=== PATIENT | female | born 1945 | race American Indian/Alaskan Native ===

== ENCOUNTER 2016-12-25 16:04 | Emergency (ER) | payer OTHER ==
[2016-12-25 16:20] VITALS: BP 167/84; PULSE 75; RESP 20; TEMP 98.2; O2SAT 92
--- NOTE | 2016-12-25 16:38 | UCPHY ---
H & P Patient Type: New Chief Complaint Nursing Narrative: PT. states intermittent for 2weeks,usually upon awakening,cough-in afternoon to nanci, productive-green with exertional dyspnea,fever 1.5wks ago?99.0 Time Seen by Provider: 12/25/16 16:28 HPI/ROS: CHIEF COMPLAINT: Sinus congestion, headache, cough HISTORY OF PRESENT ILLNESS: The patient is a 71-year-old female who comes to the Urgent Care complaining of a sinus infection. She states that she has had sinus congestion for the last 5 days. When she lays flat she has a headache and a dry cough. She denies sore throat. She had a temperature of 99 degrees 2 days ago but has not had any fever since. She denies chest pain or shortness of breath. She does not have any history of cardiac or pulmonary disease. REVIEW OF SYSTEMS: Constitutional: denies: chills, fever, recent illness, recent injury EENTM: See HPI Respiratory: See HPI Cardiac: denies: chest pain, irregular heart rate, lightheadedness, palpitations Gastrointestinal/Abdominal: denies: abdominal pain, diarrhea, nausea, vomiting, blood streaked stools Genitourinary: denies: dysuria, frequency, hematuria, pain Musculoskeletal: denies: joint pain, muscle pain Skin: denies: lesions, rash, jaundice, bruising Neurological: denies: headache, numbness, paresthesia, tingling, dizziness, weakness Hematologic/Lymphatic: denies: blood clots, easy bleeding, easy bruising Immunologic/allergic: denies: HIV/AIDS, transplant EXAM: GENERAL: Well-appearing, well-nourished and in no acute distress. HEAD: Atraumatic, normocephalic. EYES: Pupils equal round and reactive to light, extraocular movements intact, sclera anicteric, conjunctiva are normal. ENT: effusions behind both tympanic membranes, sinus tenderness, sinus discharge, no oral erythema or exudate. Mucous membranes moist NECK: Normal range of motion, supple without lymphadenopathy or JVD. LUNGS: Breath sounds clear to auscultation bilaterally and equal. No wheezes rales or rhonchi. HEART: Regular rate and rhythm without murmurs, rubs or gallops. ABDOMEN: Soft, nontender, normoactive bowel sounds. No guarding, no rebound. No masses appreciated. BACK: No CVA tenderness, no spinal tenderness, step-offs or deformities EXTREMITIES: Normal range of motion, no pitting or edema. No clubbing or cyanosis. NEUROLOGICAL: Cranial nerves II through XII grossly intact. Normal speech, normal gait. 5/5 strength, normal movement in all extremities, normal sensation PSYCH: Normal mood, normal affect. SKIN: Warm, dry, normal turgor, no visible rashes or lesions. Source: Patient Exam Limitations: No limitations - Medical/Surgical History Hx Asthma: No Hx Chronic Respiratory Disease: No Hx Diabetes: No Hx Cardiac Disease: No Hx Renal Disease: No Hx Cirrhosis: No Hx Alcoholism: No Hx HIV/AIDS: No Hx Splenectomy or Spleen Trauma: No Other PMH: Med hx-thyroid,CA-Liver. Surg-Hyst with partial liver,lumpectomy, appy - Family History Significant Family History: No pertinent family hx - Social History Smoking Status: Former smoker Alcohol Use: Sober Drug Use: None Constitutional: Initial Vital Signs Temperature (C) 36.8 C 12/25/16 16:08 Heart Rate 75 12/25/16 16:08 Respiratory Rate 20 12/25/16 16:08 Blood Pressure 167/84 H 12/25/16 16:08 O2 Sat (%) 92 12/25/16 16:08 O2 Delivery Mode Room Air Allergies/Adverse Reactions: erythromycin base [Erythromycin Base] Allergy (Severe, Verified 12/25/16 16:09) Unknown fluoxetine HCl [From Prozac] Allergy (Severe, Verified 12/25/16 16:09) PARANOIA iodine [Iodine] Allergy (Severe, Verified 12/25/16 16:09) Anaphylaxis lithium [[place]] Allergy (Severe, Verified 12/25/16 16:09) Unknown fluticasone propionate [From Flonase] Allergy (Unknown, Verified 12/25/16 16:09) Latex, Natural Rubber Allergy (Unknown, Verified 12/25/16 16:09) triamcinolone acetonide [From Nasacort AQ] Allergy (Unknown, Verified 12/25/16 16:09) adhesive Allergy (Verified 12/25/16 16:09) Other-Enter Comments ssri's Allergy (Unknown, Uncoded 12/25/16 16:09) Home Medications: Medication Instructions Recorded AZITHROMYCIN [Z-PACK] 250 mg PO DAILY #6 tab 12/25/16 Levothyroxine 12/25/16 VITAMIN D 12/25/16 Medical Decision Making ED Course/Re-evaluation: Patient has symptoms consistent with sinusitis. I will start her on azithromycin. She is agreeable with this. She declines further workup or testing at this time. She is not allergic to azithromycin . Differential Diagnosis: Partial list of the Differential diagnosis considered include but were not limited to; sinus infection, pharyngitis, otitis media and although unlikely based on the history and physical exam, I also considered bronchitis, pneumonia , sepsis. I discussed these differential diagnoses and the plan with the patient as well as the usual and expected course. The patient understands that the diagnosis is provisional and that in medicine we are not always correct and that further workup is often warranted. Usual and customary warnings were given. All of the patient's questions were answered. The patient was instructed to return to the emergency department should the symptoms at all worsen or return, otherwise to followup with the physician as we discussed. Departure - Departure Disposition: Home, Routine, Self-Care Clinical Impression: Sinusitis Qualifiers: Sinusitis location: maxillary Chronicity: acute Recurrence: non-recurrent Qualified Code(s): J01.00 - Acute maxillary sinusitis, unspecified Condition: Fair Instructions: Sinusitis (ED) Referrals: Kajal Raines MD [Primary Care Provider] - As per Instructions Prescriptions: AZITHROMYCIN [Z-PACK] 250 mg PO DAILY #6 tab - PQRS PQRS Measurement: 134: Depression screening and followup, PRIME MD-PHQ2 (12 years and older) Over the last 2 weeks, how often have you been bothered by any of the following problems? 1. Feeling down, depressed, or hopeless? 2. Little interest or pleasure in doing things? Patient answered no to both 1 and 2 130: Documentation of medications. Reviewed all patient medications, doses, route and frequency. 226: Do you smoke? No. 47: 65 and older: Advanced care planning. Patient designates surrogate decision maker as spouse . Patient has advanced directive. 51: 18 years old and older with diagnosis of COPD, spirometry performance. Spirometry not performed; equipment not available. 52: 18 years old and older with COPD and symptoms of COPD or FEV1<60% predicted prescribed a B Agonist. Not applicable
== END 2016-12-25 17:07 | disposition home or self-care (01) ==
LOC: CED 16:04
DX: J01.00 Acute maxillary sinusitis, unspecified (principal); Z87.891 Personal history of nicotine dependence
CPT/HCPCS: G0463-PO

== ENCOUNTER → 2017-01-15 | Outpatient (CLI) | payer OTHER | LOC: CIMAGING 12:28 | PROVIDERS: ATTEND Family Medicine | DX: N63 Unspecified lump in breast (principal) | CPT/HCPCS: 76641; G0204 ==

== ENCOUNTER → 2017-02-02 | Outpatient (CLI) | payer OTHER ==
[~2017-02-02] MED LIST: BUPIVACAINE 0.5% 10 ML SDV ONE; LIDO/EPI 1% **Not for Epidural 20 ML MDV ONE; LIDOCAINE 1% 30 ML SDV ONE; NA BICARBONATE 50 MEQ/50 ML VIAL ONE; THROMBIN (BOVINE) 5,000 UNIT VIAL TP ONE
== END ==
LOC: FIMAGING 08:35
PROVIDERS: ATTEND Family Medicine
PROC: 0HBU3ZX Excision of Left Breast, Percutaneous Approach, Diagnostic (ICD-10-PCS; principal; 2017-02-02)
DX: C50.912 Malignant neoplasm of unspecified site of left female breast (principal)
CPT/HCPCS: G0206

== ENCOUNTER 2017-03-03 08:13 | Observation (INO) | payer OTHER ==
--- NOTE | 2017-03-02 16:03 | GHP ---
[f rep st] PREOP HISTORY AND PHYSICAL DATE OF ADMISSION: 03/03/2017 DATE OF SURGERY: 03/03/2017. CHIEF COMPLAINT: Left multifocal breast cancer. HISTORY OF PRESENT ILLNESS: The patient is a 72-year-old woman who has a history of breast cancer o n the right side. She underwent lumpectomy and radiation. She also had a hysterectomy due to stage IV ovarian cancer approximately 30 years ago. She reports that she had genetic testing that was po sitive, but she is unsure of what gene. She does not think that it was the BRCA gene. She developed nodules of the left breast. She had diagnostic mammogram and ultrasound on 01/15/2017 . She underwent ultrasound-guided biopsy on 02/02/2017. At the 10 o'clock position 8 cm from the n ipple, the pathology revealed infiltrating ductal carcinoma, grade 3 that was weakly ER positive, OR negative. At the left breast in the 4 o'clock position 4 cm from the nipple, was infiltrating duct al carcinoma, similar features. She presents at this time for mastectomy. PAST MEDICAL HISTORY: Bipolar disorder, history of breast cancer as above, cyclothymic disorder, GE RD, hypothyroidism, liver abscess, ovarian cancer, vitamin D deficiency, stress incontinence. PAST SURGICAL HISTORY: Appendectomy, cholecystectomy, hysterectomy, liver lobectomy, right lumpecto my. ALLERGIES: Fluoxetine, iodine, SSRIs, triamcinolone, Nasacort. FAMILY HISTORY: Daughter in her 40s was diagnosed with breast cancer. Mother with congestive heart failure. Maternal grandfather, mother, and uncle with type 2 diabetes. SOCIAL HISTORY: She has 5 children. She is a former smoker. She denies current tobacco, alcohol, or recreational drug use. REVIEW OF SYSTEMS: A 10-point review of systems is negative aside from the HPI. PHYSICAL EXAMINATION: GENERAL: Well-developed, well-nourished woman in no acute distress. HEENT: Normocephalic, atraumatic. No hearing deficits. Pupils equal and round. No scleral icterus. Muc ous membranes moist. NECK: Trachea midline. RESPIRATORY: Clear to auscultation bilaterally. No i ncreased work of breathing. CARDIOVASCULAR: Regular rate and rhythm. No peripheral edema. BREAST S: Evidence of biopsy on the left upper outer breast. Right breast incision well healed. SKIN: W arm and dry. MUSCULOSKELETAL: Normal gait. Normal nails. PSYCH: Mood and affect normal. NEURO: Grossly inta ct. IMPRESSION AND PLAN: The patient is a 72-year-old woman with a left multifocal breast cancer and a history of right breast cancer. She would like to pursue bilateral mastectomy with left sentinel ly mph node biopsy. Risks of surgery were discussed, including but not limited to, heart attack, strok e, blood clots or . We also discussed risk of infection, bleeding, lymphedema, nerve damage, a nd need for additional procedures. She understands that she will have drains. She had her question s answered to her satisfaction. /[id number]/MODL
[2017-03-03] MEDS ORDERED: ceFAZolin 2 GM/DEXTROSE 100 ML IV ONE (08:40)
[2017-03-03] MEDS ORDERED: LIDOCAINE 1% 2 ML INJ ID PRN ×2 (08:42→10:44)
[2017-03-03] MEDS ORDERED: LR 1,000 ML IV ONE (08:42)
[2017-03-03] MEDS ORDERED: LIDOCAINE 1% 2 ML INJ ONE (08:50)
--- NOTE | 2017-03-03 10:20 | PDANEPAE ---
ANE History of Present Illness Ms. Gray is a 72 year old female with PMH of bipolar disorder, malignant breast neoplasm, cyclothymic disorder, GERD, hypothyroidism, h/o liver abcess in 2009 with subsequent drainage and levaquin treatment for 4 weeks, and h/o ovarian cancer s/p surgical removal with hysterectomy and chemotherapy, stress incontinence. She is obese and has a history of asthma as well. She has multiple listed allergies which have been reviewed. She has not had any difficulty with anesthesia in the past and has no history of cardiac disease. ANE Past Medical History - Cardiovascular History Hx Hypertension: No Hx Arrhythmias: No Hx Chest Pain: No Hx Coronary Artery / Peripheral Vascular Disease: No Hx CHF / Valvular Disease: No Hx Palpitations: No - Pulmonary History Hx COPD: No Hx Asthma/Reactive Airway Disease: Yes Hx Recent Upper Respiratory Infection: No Hx Oxygen in Use at Home: No - Neurologic History Hx Cerebrovascular Accident: No Hx Seizures: No Hx Dementia: No - Endocrine History Hx Diabetes: No Hypothyroid: Yes - Renal History Hx Renal Disorders: No - Liver History Hx Hepatic Disorders: Yes - Neurological & Psychiatric Hx Hx Neurological and Psychiatric Disorders: Yes - Cancer History Hx Cancer: Yes - Congenital Disorder History Hx Congenital Disorders: No - GI History Hx Gastrointestinal Disorders: Yes - Chronic Pain History Chronic Pain: No ANE Review of Systems - Exercise capacity METS (RN): 4 METS ANE Patient History - Allergies Allergies/Adverse Reactions: erythromycin base [Erythromycin Base] Allergy (Severe, Verified 03/02/17 17:44) Unknown fluoxetine HCl [From Prozac] Allergy (Severe, Verified 03/02/17 17:44) PARANOIA iodine [Iodine] Allergy (Severe, Verified 03/02/17 17:44) Anaphylaxis lithium [[place]] Allergy (Severe, Verified 03/02/17 17:44) Unknown fluticasone propionate [From Flonase] Allergy (Unknown, Verified 03/02/17 17:44) Latex, Natural Rubber Allergy (Unknown, Verified 03/02/17 17:44) Rash triamcinolone acetonide [From Nasacort AQ] Allergy (Unknown, Verified 03/02/17 17:44) adhesive Allergy (Verified 03/02/17 17:44) Other-Enter Comments ssri's Allergy (Unknown, Uncoded 03/02/17 17:44) Unknown - Home Medications Home Medications: Levothyroxine 12/25/16 [Last Taken 03/02/17 21:00] - NPO status NPO Since - Liquids (Date): 03/03/17 NPO Since - Liquids (Time): 05:30 NPO Since - Solids (Date): 03/02/17 NPO Since - Solids (Time): 23:30 - Anes Hx Anes Hx: no prior problems - Smoking Hx Smoking Status: Former smoker - Family Anes Hx Family Hx Anesthesia Complications: no ANE Labs/Vital Signs - Vital Signs Blood Pressure: 182/92 Heart Rate: 74 Respiratory Rate: 16 O2 Sat (%): 92 Height: 160.02 cm Weight: 92.986 kg ANE Physical Exam - Airway Neck exam: FROM Mallampati Score: Class 1 Mouth exam: normal dental/mouth exam, poor dentition - Pulmonary Pulmonary: no respiratory distress - Cardiovascular Cardiovascular: regular rate and rhythym - ASA Status ASA Status: III (multiple missing teeth) ANE Anesthesia Plan Anesthesia Plan: general endotracheal anesthesia Urgent/Emergent Case: Lolis montes completed preop but documented later for safe timely pt care
[2017-03-03] MEDS ORDERED: MIDAZOLAM 2 MG/2 ML VIAL IVP ONE (10:24)
[2017-03-03] MEDS ORDERED: DEXAMETHASONE 4 MG/ML VIAL ONE (10:31)
[2017-03-03] MEDS ORDERED: ONDANSETRON 4 MG/2 ML VIAL ONE (10:31)
[2017-03-03] MEDS ORDERED: PROPOFOL 200 MG/20 ML VIAL ONE (10:31)
[2017-03-03] MEDS ORDERED: ROCURONIUM 50 MG/5 ML VIAL ONE (10:31)
[2017-03-03] MEDS ORDERED: HYDROmorphONE/DILAUDID 2 MG/ML INJ ONE (10:41)
[2017-03-03] MEDS ORDERED: THROMBIN (BOVINE) 20,000 UNIT SPRAY TP ONE (10:42)
[2017-03-03] MEDS ORDERED: BUPIVACAINE 0.5% 30 ML SDV ONE (10:43)
--- NOTE | 2017-03-03 10:49 | PDHPUP ---
History & Physical Update H&P update statement: This history and physical update is based on an assessment of the patient which was completed after admission or registration (within 24 hours), but prior to the surgery/procedure. H&P update: H&P reviewed & patient examined, no change in patient's condition since H&P completed
--- NOTE | 2017-03-03 11:11 | POSTOPPROG ---
Post Op Note Date of Operation: 03/03/17 Surgeon: Yecenia Faith Ink Technician: armando Anesthesiologist: min Anesthesia: GET(General Endotracheal) Pre-op Diagnosis: left breast ca Post-op Diagnosis: same Indication: 72yo F with h/o r breast ca now with left multicentric breast ca Procedure: B mastectomy B SLN bx Findings: B SLN neg Inf/Abcess present in the surg proc area at time of surgery?: No Depth: Deep Incisional (Fascial) EBL: 100-500 Drains: Jose Mattson
[2017-03-03] MEDS ORDERED: ONDANSETRON 4 MG/2 ML VIAL IVP PRN (11:13)
[2017-03-03] MEDS ORDERED: ALBUTEROL 3 ML DEYVIAL IH PRN (11:13)
[2017-03-03] MEDS ORDERED: ACETAMINOPHEN 325 MG TAB PO PRN (11:13)
[2017-03-03] MEDS ORDERED: HYDROCODONE/APAP 5/325 TAB PO PRN (11:13)
[2017-03-03] MEDS ORDERED: ONDANSETRON DISINTEGRATING 4 MG TAB PO PRN (11:13)
[2017-03-03] MEDS ORDERED: diphenhydrAMINE 25 MG CAP PO PRN (11:13)
[2017-03-03] MEDS ORDERED: LABETALOL HCL 50 MG/10 ML SYR ONE ×2 (12:06→13:31)
[2017-03-03] MEDS ORDERED: LR 500 ML IV PRN (12:19)
[2017-03-03] MEDS ORDERED: NALOXONE HCL 0.4 MG/ML INJ IVP PRN (12:19)
[2017-03-03] MEDS ORDERED: fentaNYL 100 MCG/2 ML INJ IVP PRN (12:19)
[2017-03-03] MEDS ORDERED: MEPERIDINE 25 MG/ML SYR IVP PRN (12:19)
[2017-03-03] MEDS ORDERED: LABETALOL HCL 5 MG/ML 20 ML MDV IVP PRN (12:19)
[2017-03-03] MEDS ORDERED: fentaNYL 100 MCG/2 ML INJ ONE (13:31)
[2017-03-03] MEDS: NS 1,000 ML IV SCH (15:30)
[2017-03-04] MEDS: HYDROmorphONE/DILAUDID 1 MG/ML SYR IVP PRN ×2 (00:29→05:05)
[2017-03-04] MEDS: NS 1,000 ML IV SCH (05:11)
[2017-03-04] MEDS ORDERED: LEVOTHYROXINE 100 MCG TAB PO SCH (06:00)
[2017-03-04 07:36] VITALS: BP 128/68; PULSE 73; RESP 16; TEMP 98.1
--- NOTE | 2017-03-04 08:01 | POSTANESTH ---
Post Anesthetic Evaluation Cardiovascular Status: Normal, Stable Respiratory Status: Normal, Stable Level of Consciousness/Mental Status: Can Participate in Eval Pain Control: Adequate, Prn Tx Ordered Nausea/Vomiting Control: Adequate, Prn Tx Ordered Complications Possibly Related to Anesthesia: None Noted
[2017-03-04] MEDS: oxyCODONE IR 5 MG TAB PO PRN ×2 (08:35→12:24)
[2017-03-04 08:37] VITALS: O2SAT 89
[2017-03-04] MEDS ORDERED: ENOXAPARIN 40 MG/0.4 ML SYR SC SCH (09:00)
--- NOTE | 2017-03-04 09:40 | SOAPPROG ---
SOAP Progress Note Assessment/Plan: Assessment: 72yo M POD#1 s/p B mastectomy with B SLN bx Path pending Pain controlled c IV pain meds - transition to PO Regular diet May remove dressing and shower later today. Change drains as needed Dispo: likely home later today if pain controlled S: pain controlled. ambulating without assistance. her daughter will take care of her at home and is comfortable with drains O: laying in bed, comfortable, NAD No increased WOB Dressings intact MELINDA drains with thin sanguinous fluid Objective: Vital Signs Temp Pulse Resp BP Pulse Ox 36.7 C 73 16 128/68 H 89 L 03/04/17 07:34 03/04/17 07:34 03/04/17 07:34 03/04/17 07:34 03/04/17 08:37 03/03/17 03/04/17 03/05/17 05:59 05:59 05:59 Intake Total 2510 Output Total 1105 Balance 1405 ICD10 Worksheet Patient Problems: Problems Problem Status Onset Breast cancer Acute - ICD10 Problem Qualifiers (1) Breast cancer Qualifiers: Breast location: B Estrogen receptor status: E Patient sex: female Laterality: left
--- NOTE | 2017-03-05 03:41 | GOP ---
[f rep st] OPERATIVE REPORT DATE OF OPERATION: 03/03/2017 SURGEON: Yecenia Faith MD COMMERCIAL APPRAISER: INÉS Ford. ANESTHESIA: Dr. Aneta Doan/General PREOPERATIVE DIAGNOSIS: Left breast cancer with history of right breast cancer. POSTOPERATIVE DIAGNOSIS: Left breast cancer with history of right breast cancer. PROCEDURE PERFORMED: Bilateral mastectomy with bilateral sentinel lymph node biopsy. FINDINGS: Bilateral sentinel lymph nodes negative. ESTIMATED BLOOD LOSS: 100 cc. INDICATIONS: The patient is a 72-year-old woman with a history of right breast cancer, who developed left breast cancer. She presents for bilateral mastectomy. DESCRIPTION OF PROCEDURE: Patient was brought into the operating room, placed supine on the table, and general anesthesia was administered. Her bilateral neck and chest, and maxilla were prepped and draped in the usual sterile fashion. I made an ellipse around her right breast and created superior and inferior skin flaps. My dissection occurred to the clavicle, sternum, inframammary fold, and posterior axillary line. I removed the breast from the pectoralis including the fascia. It was more adhered in the inferior portion of her right breast. This was marked short superior, long lateral, and submitted to Pathology. I used the gamma probe to identify the sentinel lymph node in the right axilla. This was submitted to Pathology. The frozen section returned negative. In a similar fashion, I performed dissection on the left side and also obtained a sentinel lymph node on this side. Left sentinel lymph node was also negative. She had a 15 round silicone drain placed in each wound , sutured into place with 3-0 nylon. Hemostasis was achieved in each wound. The wounds were closed with 3-0 Vicryl, followed by 4-0 Monocryl. Mastisol, Steri-Strips, and sterile dressings were applied. /[id number]/MODL MTDD
== END 2017-03-04 14:20 | disposition home or self-care (01) ==
LOC: F3E 08:13 → F1N 14:27
PROVIDERS: ADMIT Surgery; ATTEND Surgery
DX: C50.912 Malignant neoplasm of unspecified site of left female breast (principal)
CPT/HCPCS: 19307; A9520; G0378; J0690; J1100; J1170; J1650; J2405; J2704; J3010